=== PATIENT | male | born 1935 | race Caucasian/White ===

== ENCOUNTER 2020-01-29 15:12 | Emergency (ER) | payer MEDICARE ==
[2020-01-29] MEDS ORDERED: Ondansetron PF 4 MG/2 ML Vial ONE (16:56)
== END 2020-01-29 17:45 | disposition home or self-care (01) ==
LOC: ERS 15:12
DX: T18.128A Food in esophagus causing other injury, initial encounter (principal); E78.5 Hyperlipidemia, unspecified; I10 Essential (primary) hypertension; Z87.891 Personal history of nicotine dependence
CPT/HCPCS: 70360; J1610; J2405